=== PATIENT | female | born 1930 | race Caucasian/White ===

== ENCOUNTER → 2016-07-18 | Outpatient (CLI) | payer MEDICARE, OTHER ==
[~2016-07-18] MED LIST: AMOXICILLIN 8751 TAB PO; CHLOR TRIMETON 44 MG PO; COZAAR100 MG PO; FLONASE NASAL S16 GM NS; HCTZ 25MG TAB25 MG PO; LOPRESSOR 550 MG/TAB PO; MULTI VITAMINS1 TAB PO; NORITATE1% TP; NORVASC 5MG5 MG/TAB PO; PLAVIX 75MG TAB75 MG PO; PRAVACHOL 40MG40 MG PO; TYLENOL 500MG500 MG PO
== END ==
LOC: COL.RAD 11:10
DX: E21.3 Hyperparathyroidism, unspecified (principal)
CPT/HCPCS: A9500

== ENCOUNTER → 2016-07-22 | Outpatient (CLI) | payer MEDICARE, OTHER | LOC: MHCPAIN 07:51 | DX: G89.29 Other chronic pain (principal); M47.27 Other spondylosis with radiculopathy, lumbosacral region; M48.06 Spinal stenosis, lumbar region | CPT/HCPCS: G0463 ==

== ENCOUNTER → 2016-07-31 | Outpatient (CLI) | payer MEDICARE, OTHER | LOC: MHCPAIN 07:36 | DX: M54.16 Radiculopathy, lumbar region (principal) | CPT/HCPCS: J1100; Q9967 ==

== ENCOUNTER → 2016-08-06 | Outpatient (CLI) | payer MEDICARE, OTHER | LOC: MC.RAD 07:34 | DX: Z12.31 Encounter for screening mammogram for malignant neoplasm of breast (principal) ==

== ENCOUNTER 2016-08-07 11:27 | Emergency (ER) | payer MEDICARE, OTHER ==
[~2016-08-07] VITALS: Ht 157.5 cm; Wt 68.2 kg
[2016-08-07 11:39] VITALS: TEMP 99.1
[2016-08-07] MEDS ORDERED: PRAVACHOL 40MG40 MG PO (11:45)
[2016-08-07] MEDS ORDERED: FLONASE NASAL S16 GM NS (11:45)
[2016-08-07] MEDS ORDERED: LOPRESSOR 550 MG/TAB PO (11:46)
[2016-08-07] MEDS ORDERED: COZAAR100 MG PO (11:46)
[2016-08-07] MEDS ORDERED: NORVASC 5MG5 MG/TAB PO (11:46)
[2016-08-07] MEDS ORDERED: MULTI VITAMINS1 TAB PO (11:47)
[2016-08-07] MEDS ORDERED: TYLENOL 500MG500 MG PO (11:47)
[2016-08-07] MEDS ORDERED: PLAVIX 75MG TAB75 MG PO (11:47)
[2016-08-07] MEDS ORDERED: HCTZ 25MG TAB25 MG PO (11:48)
[2016-08-07] MEDS ORDERED: CHLOR TRIMETON 44 MG PO (11:48)
[2016-08-07] MEDS ORDERED: NORITATE1% TP (11:48)
[2016-08-07 13:12] LABS: BASO % 0.2 % (0.0-2.0); EOS # 0.1 (0.0-0.7); EOS % 0.9 % (0-4.0); GRAN # 9.9 (1.4-6.5); HEMATOCRIT 47.5 % (37.0-47.0); HEMOGLOBIN 15.6 g/dl (12.5-16.0); LYMPH # 2.4 (1.2-3.4); LYMPH % 17.4 % (20.0-51.0); MEAN CELL VOLUME 90 fl (80.0-100.0); MEAN CORPUSCULAR HEMOGLOBIN 30 pg (27.0-31.0); MEAN CORPUSCULAR HGB CONC 33 g/dl (33.0-37.0); MEAN PLATELET VOLUME 10.2 fl (7.4-10.4); MONO # 1.4 (0.1-0.6); MONO % 10.1 % (1.7-9.3); PLATELET COUNT 293 K/mm3 (130-400); RED BLOOD COUNT 5.26 M/mm3 (4.10-5.30); REDCELL DISTRIBUTION WIDTH-CV 13.7 % (11.5-14.5); WHITE BLOOD COUNT 13.9 K/mm3 (4.8-10.8)
[2016-08-07 13:28] LABS: ALBUMIN 4.9 gm/dL (3.5-5.0); C-REACTIVE PROTEIN 1.7 mg/dL (0.0-0.9); CALCIUM 11.7 mg/dL (8.4-10.2); CREATININE, serum 0.96 mg/dL (0.52-1.25); POTASSIUM 4.1 mmol/L (3.4-5.0); TOTAL PROTEIN 8.7 gm/dL (6.4-8.2)
[2016-08-07 13:39] LABS: ERYTHROCYTE SEDIMENTATION RATE 22 mm/hr (0-30)
[2016-08-07] MEDS ORDERED: AMOXICILLIN 8751 TAB PO (14:43)
[2016-08-07 16:22] LABS: CEREBROSPINAL TUBE #3; CSF APPEARANCE CLEAR; CSF COLOR COLORLESS
[2016-08-07 16:25] LABS: CEREBROSPINAL TUBE #1
[2016-08-07 16:26] LABS: CSF APPEARANCE CLEAR; CSF COLOR COLORLESS
[2016-08-07 17:06] VITALS: BP 166/60; PULSE 62
== END 2016-08-07 17:07 | disposition home or self-care (01) ==
LOC: COL.ER 11:27
PROVIDERS: Emergency Medicine
DX: R51 Headache (principal); M46.92 Unspecified inflammatory spondylopathy, cervical region; R59.0 Localized enlarged lymph nodes; Z79.02 Long term (current) use of antithrombotics/antiplatelets
CPT/HCPCS: J1885

== ENCOUNTER → 2016-08-19 | Outpatient (CLI) | payer MEDICARE, OTHER | LOC: MHCPAIN 09:51 | DX: G89.29 Other chronic pain (principal); M47.817 Spondylosis without myelopathy or radiculopathy, lumbosacral region; M54.16 Radiculopathy, lumbar region; M53.3 Sacrococcygeal disorders, not elsewhere classified; M48.00 Spinal stenosis, site unspecified | CPT/HCPCS: G0463 ==

== ENCOUNTER → 2016-08-28 | Outpatient (CLI) | payer MEDICARE, OTHER | LOC: MHCPAIN 07:38 | DX: M47.817 Spondylosis without myelopathy or radiculopathy, lumbosacral region (principal) | CPT/HCPCS: J1040; J1100; J2250; J3010; Q9967 ==

== ENCOUNTER → 2016-09-30 | Outpatient (CLI) | payer MEDICARE, OTHER | LOC: MHCPAIN 08:06 | DX: G89.29 Other chronic pain (principal); M47.817 Spondylosis without myelopathy or radiculopathy, lumbosacral region; M54.16 Radiculopathy, lumbar region; M48.06 Spinal stenosis, lumbar region | CPT/HCPCS: G0463 ==

== ENCOUNTER 2016-11-19 13:15 | Outpatient (RCR) | payer MEDICARE, OTHER | END 2016-11-20 09:57 | disposition home or self-care (01) | LOC: WSPT 13:15 | DX: M48.06 Spinal stenosis, lumbar region (principal); M47.27 Other spondylosis with radiculopathy, lumbosacral region; M53.3 Sacrococcygeal disorders, not elsewhere classified; G89.29 Other chronic pain | CPT/HCPCS: G8978-GP; G8979-GP; G8980-GP ==

== ENCOUNTER → 2016-12-09 | Outpatient (CLI) | payer MEDICARE, OTHER | LOC: MHCPAIN 07:52 | DX: G89.29 Other chronic pain (principal); M47.27 Other spondylosis with radiculopathy, lumbosacral region; Z79.02 Long term (current) use of antithrombotics/antiplatelets | CPT/HCPCS: G0463 ==

== ENCOUNTER → 2017-07-07 | Outpatient (CLI) | payer MEDICARE, OTHER | LOC: MHCPAIN 11:39 | DX: G89.29 Other chronic pain (principal); M47.817 Spondylosis without myelopathy or radiculopathy, lumbosacral region; M54.16 Radiculopathy, lumbar region; M53.3 Sacrococcygeal disorders, not elsewhere classified; M48.061 Spinal stenosis, lumbar region without neurogenic claudication | CPT/HCPCS: G0463 ==

== ENCOUNTER → 2017-07-27 | Outpatient (CLI) | payer MEDICARE, OTHER | LOC: MHCPAIN 08:05 | DX: G89.29 Other chronic pain (principal); M47.817 Spondylosis without myelopathy or radiculopathy, lumbosacral region; M54.16 Radiculopathy, lumbar region; M53.3 Sacrococcygeal disorders, not elsewhere classified; M48.061 Spinal stenosis, lumbar region without neurogenic claudication | CPT/HCPCS: G0463 ==

== ENCOUNTER → 2017-07-30 | Outpatient (CLI) | payer MEDICARE, OTHER | LOC: MHCPAIN 09:38 | DX: M48.07 Spinal stenosis, lumbosacral region (principal); M47.27 Other spondylosis with radiculopathy, lumbosacral region | CPT/HCPCS: J1040; Q9967 ==

== ENCOUNTER → 2017-08-07 | Outpatient (CLI) | payer MEDICARE, OTHER | LOC: MC.RAD 06:51 | DX: Z12.31 Encounter for screening mammogram for malignant neoplasm of breast (principal) ==

== ENCOUNTER → 2017-08-11 | Outpatient (CLI) | payer MEDICARE, OTHER | LOC: MHCPAIN 09:18 | DX: G89.29 Other chronic pain (principal); M47.27 Other spondylosis with radiculopathy, lumbosacral region; M48.061 Spinal stenosis, lumbar region without neurogenic claudication; M53.3 Sacrococcygeal disorders, not elsewhere classified | CPT/HCPCS: G0463 ==

== ENCOUNTER → 2017-11-10 | Outpatient (CLI) | payer MEDICARE, OTHER | LOC: MHCPAIN 09:16 | DX: G89.29 Other chronic pain (principal); M47.817 Spondylosis without myelopathy or radiculopathy, lumbosacral region; M54.16 Radiculopathy, lumbar region; M53.3 Sacrococcygeal disorders, not elsewhere classified; M48.061 Spinal stenosis, lumbar region without neurogenic claudication | CPT/HCPCS: G0463 ==

== ENCOUNTER → 2018-03-22 | Outpatient (CLI) | payer MEDICARE, OTHER | LOC: MHCPAIN 07:50 | DX: G89.29 Other chronic pain (principal); M47.817 Spondylosis without myelopathy or radiculopathy, lumbosacral region; M54.16 Radiculopathy, lumbar region; M53.3 Sacrococcygeal disorders, not elsewhere classified; M48.061 Spinal stenosis, lumbar region without neurogenic claudication | CPT/HCPCS: G0463 ==

== ENCOUNTER → 2018-06-22 | Outpatient (CLI) | payer MEDICARE, OTHER | LOC: MHCPAIN 09:00 | DX: G89.29 Other chronic pain (principal); M47.817 Spondylosis without myelopathy or radiculopathy, lumbosacral region; M54.16 Radiculopathy, lumbar region; M53.3 Sacrococcygeal disorders, not elsewhere classified; M48.061 Spinal stenosis, lumbar region without neurogenic claudication | CPT/HCPCS: G0463 ==

== ENCOUNTER → 2018-08-10 | Outpatient (CLI) | payer MEDICARE, OTHER | LOC: MC.RAD 15:31 | DX: Z12.31 Encounter for screening mammogram for malignant neoplasm of breast (principal) ==

== ENCOUNTER → 2018-09-21 | Outpatient (CLI) | payer MEDICARE, OTHER | LOC: MHCPAIN 07:57 | DX: G89.29 Other chronic pain (principal); M47.817 Spondylosis without myelopathy or radiculopathy, lumbosacral region; M54.16 Radiculopathy, lumbar region; M53.3 Sacrococcygeal disorders, not elsewhere classified; M48.061 Spinal stenosis, lumbar region without neurogenic claudication | CPT/HCPCS: G0463 ==

== ENCOUNTER → 2018-12-21 | Outpatient (CLI) | payer MEDICARE, OTHER | LOC: MHCPAIN 08:49 | DX: G89.29 Other chronic pain (principal); M47.817 Spondylosis without myelopathy or radiculopathy, lumbosacral region; M54.16 Radiculopathy, lumbar region; M53.3 Sacrococcygeal disorders, not elsewhere classified | CPT/HCPCS: G0463 ==

== ENCOUNTER 2020-05-05 08:46 | Emergency (ER) | payer MEDICARE, OTHER ==
[~2020-05-05] VITALS: Ht 157.5 cm; Wt 61.4 kg
[2020-05-05 08:47] VITALS: TEMP 98.6
[2020-05-05 09:45] LABS: BASO % 0.1 % (0.0-2.0); EOS % 0.1 % (0-4.0); GRAN % 79.6 % (42.2-75.2); HEMATOCRIT 41.7 % (37.0-47.0); HEMOGLOBIN 13.5 g/dl (12.5-16.0); LYMPH # 1.1 (1.2-3.4); LYMPH % 8.6 % (20.0-51.0); MEAN CELL VOLUME 91 fl (80.0-100.0); MEAN CORPUSCULAR HEMOGLOBIN 29 pg (27.0-31.0); MEAN CORPUSCULAR HGB CONC 32 g/dl (33.0-37.0); MEAN PLATELET VOLUME 10.5 fl (7.4-10.4); MONO # 1.4 (0.1-0.6); MONO % 11.2 % (1.7-9.3); PLATELET COUNT 224 K/mm3 (130-400); RED BLOOD COUNT 4.61 M/mm3 (4.10-5.30); REDCELL DISTRIBUTION WIDTH-CV 13.1 % (11.5-14.5)
[2020-05-05 09:54] LABS: ALBUMIN 4.2 gm/dL (3.5-5.0); BILIRUBIN,TOTAL 1.1 mg/dL (0.0-1.0); CALCIUM 10.3 mg/dL (8.4-10.2); CREATININE, serum 1.09 (0.52-1.25); TOTAL PROTEIN 7.3 gm/dL (6.4-8.2)
[2020-05-05] MEDS ORDERED: PERCOCET 325 MG1 TA2 PO (11:32)
[2020-05-05 11:39] VITALS: BP 131/62; PULSE 79
== END 2020-05-05 11:39 | disposition home or self-care (01) ==
LOC: COL.ER 08:46
PROVIDERS: Family Medicine
DX: S62.346A Nondisplaced fracture of base of fifth metacarpal bone, right hand, initial encounter for closed fracture (principal); S60.212A Contusion of left wrist, initial encounter; I10 Essential (primary) hypertension; Z79.02 Long term (current) use of antithrombotics/antiplatelets; Z88.6 Allergy status to analgesic agent; Z88.2 Allergy status to sulfonamides; W00.0XXA Fall on same level due to ice and snow, initial encounter

== ENCOUNTER → 2020-06-29 | Outpatient (CLI) | payer MEDICARE, OTHER ==
[~2020-06-29] MED LIST changes: +PERCOCET 325 MG1 TA2 PO
== END ==
LOC: MC.RAD 10:30
DX: Z12.31 Encounter for screening mammogram for malignant neoplasm of breast (principal)

== ENCOUNTER 2020-07-03 11:00 | Outpatient (RCR) | payer MEDICARE, OTHER | END 2020-07-20 12:06 | disposition home or self-care (01) | LOC: WSOT 11:00 | DX: M25.532 Pain in left wrist (principal) ==

== ENCOUNTER → 2021-07-30 | Outpatient (CLI) | payer MEDICARE, OTHER | LOC: MC.RAD 09:03 | DX: Z12.31 Encounter for screening mammogram for malignant neoplasm of breast (principal) ==